=== PATIENT | female | born 1955 | race Caucasian/White ===

== ENCOUNTER 2016-12-12 10:09 | Day surgery (SDC) | payer OTHER ==
[~2016-12-12 10:09] MED LIST: BACITRACIN 50,000 UNITS/10 ML SYR IRR ONE; BUPIVACAINE 0.5% 30 ML SDV ONE; LIDOCAINE 2% 5 ML SDV ONE; ROPIVACAINE HCL 20 MG/10 ML INJ EP ONE; ceFAZolin 2 GM/DEXTROSE 100 ML IV ONE
[2016-12-12] MEDS ORDERED: LIDOCAINE 1% 5 ML SDV ONE (10:16)
[2016-12-12] MEDS ORDERED: CEFAZOLIN 2 GM/DEXTROSE/100 ML BAG IV ONE (10:17)
[2016-12-12] MEDS ORDERED: LR 1,000 ML IV ONE (10:58)
[2016-12-12] MEDS ORDERED: PROPOFOL/EMULSION 500 MG/50 ML BOTTLE IV ONE (11:47)
[2016-12-12] MEDS ORDERED: fentaNYL 100 MCG/2 ML INJ ONE (11:47)
[2016-12-12] MEDS ORDERED: MIDAZOLAM 2 MG/2 ML VIAL ONE (11:54)
[2016-12-12] MEDS ORDERED: LIDOCAINE 2% 100 MG/5 ML SYR IVP ONE (12:00)
[2016-12-12] MEDS ORDERED: ONDANSETRON 4 MG/2 ML VIAL IVP PRN (14:13)
[2016-12-12] MEDS ORDERED: KETOROLAC 15 MG/1 ML SDV ONE (14:13)
[2016-12-12] MEDS ORDERED: ONDANSETRON DISINTEGRATING 4 MG TAB PO PRN (14:13)
[2016-12-12] MEDS ORDERED: PROMETHAZINE HCL 25 MG/ML INJ IVP PRN (14:14)
[2016-12-12] MEDS ORDERED: PROMETHAZINE HCL 25 MG TAB PO PRN (14:14)
[2016-12-12] MEDS ORDERED: KETOROLAC 15 MG/1 ML SDV IVP ONE (14:30)
--- NOTE | 2016-12-12 16:32 | GOP ---
DATE OF OPERATION: SURGEON: Krista Ponce DPM ANESTHESIA: MAC light general. ANESTHESIOLOGIST: Chris Grayson MD. PREOPERATIVE DIAGNOSIS: Tailor bunion, 5th metatarsal, left foot. POSTOPERATIVE DIAGNOSIS: Tailor bunion, 5th metatarsal, left foot. PROCEDURE PERFORMED: Osteotomy 5th metatarsal, with screw and plate fixation. FINDINGS: INDICATIONS: Pain in the left foot. Unresponsive to multiple conservative treatment efforts, deformity. The patient wears prescription orthotics and wide shoes with support. Despite, she experiences significant pain, and at this time, would like to proceed with surgery. I have done several procedures on her foot for hallux valgus left foot, hammertoes left, neuroma left, bunion/ hallux valgus right and tailor bunion right foot, and she has had uneventful postoperative recoveries. She At this time, she elects to proceed with surgery on the left foot to address painful tailor bunion. DESCRIPTION OF PROCEDURE: The patient was brought into the operating room and placed on the operating table in the supine position. Intravenous sedation administered by the anesthesiologist, a light general. A posterior tibial and peripheral nerve block was obtained, utilizing a total of 6 cc of 2% Xylocaine, 6 cc of 0.5% Marcaine plain and 6 cc of 0.2% ropivacaine. The lower extremity was prepped and draped in the usual sterile manner. After the limb was elevated , it was exsanguinated with an Esmarch bandage. Webril padding was utilized under the ankle cuff. Attention was directed towards the dorsolateral aspect of the 5th metatarsophalangeal joint where a 4 cm linear incision was created. The incision was carefully deepened with care of neurovascular structures and I clamped and cauterized bleeders. The incision deepened through the periosteum and capsule exposing the 5th metatarsal head and hypertrophied lateral eminence. A small portion of the lateral condtke was resected, and then utilizing a K-wire as an axis guide, and a Willy osteotomy guide, C-arm to verify alignment and positioning. Osteotomy was created with saggital saw Short dorsal arm and then a plantar osteotomy extending from dorsal distal to plantar proximal. Capital fragment was shifted over medially. Temporary position obtained and secured with a bone clamp and then a 45 K-wire. Prior to performing the osteotomy, a drill hole had been created in the metatarsal head. Plate attached and then rotated. Osteotomy was then created. Then, plate was rotated proximally and secured with 2 more locking screws. All screws were 2.5 mm locking , measuring 10 mm in length. C-arm utilized to verify alignment and positioning which was noted to be excellent. Temporary fixation removed. Remaining lateral metaphyseal shelf resected with a sagittal saw. The foot was copiously irrigated with bacitracin irrigation solution. Capsule and periosteal tissue closed with 3-0 Vicryl. Ankle tourniquet released, and a normal hyperemic response noted to all digits. Subcutaneous closure achieved with 4-0 Monocryl, and the skin was closed with 4-0 Prolene in a horizontal mattress and simple interrupted suture fashion. Dressings including Xeroform, 4x4s, fluffs, Jaja reinforced with tape and an Quoc bandage. The patient tolerated the procedure and anesthesia well, and left the operating room, vital signs stable and vascular status intact to all digits. There were no intraoperative complications. Estimated blood loss less than 5 cc. No additional injectables. No specimens sent to pathology. In postoperative recovery, she was doing well. Her [facility] will be providing her transportation home. Prognosis good. /[id number]/MODL MTDD
== END 2016-12-12 15:00 | disposition home or self-care (01) ==
LOC: FSGY 10:09
PROVIDERS: ATTEND Podiatrist
PROC: 0QBP0ZZ Excision of Left Metatarsal, Open Approach (ICD-10-PCS; principal; 2016-12-12 12:02)
DX: M21.622 Bunionette of left foot (principal); M20.60 Acquired deformities of toe(s), unspecified, unspecified foot
CPT/HCPCS: 28110; 73620; C1769; C1713; J0690; J1885; J2001; J2250; J2704; J2795; J3010

== ENCOUNTER 2017-05-06 10:21 | Emergency (ER) | payer OTHER ==
[2017-05-06 10:26] VITALS: TEMP 98.2
--- NOTE | 2017-05-06 10:27 | CPEKG ---
Heart Rate: 73 RR Interval: 822 P-R Interval: 184 QRSD Interval: 100 QT Interval: 404 QTC Interval: 446 P Mullens: 50 QRS Mullens: 44 T Wave Mullens: 75 EKG Severity - BORDERLINE ECG - EKG Impression: SINUS RHYTHM EKG Impression: PROBABLE LEFT ATRIAL ABNORMALITY EKG Impression: BORDERLINE T ABNORMALITIES, ANT-LAT LEADS Electronically Signed By: Isatu Anand 06-May-2017 15:31:28
[2017-05-06] MEDS ORDERED: IOPAMIDOL (ISOVUE 370) 100 ML BTL IV ONE (10:28)
[2017-05-06 10:38] LABS: % IMMATURE GRANULYOCYTES 0.1 % (0.0-1.1); ABSOLUTE IMMATURE GRANULOCYTES 0.01 10^3/uL (0.00-0.10); ADD DIFF? NO; ADD MORPH? NO; ADD SCAN? NO; ATYPICAL LYMPHOCYTE FLAG 0 (0-99); FRAGMENT RBC FLAG 0 (0-99); HEMATOCRIT 43.9 % (38.0-47.0); HEMOGLOBIN 14.8 g/dL (12.6-16.3); LEFT SHIFT FLG 0 (0-99); LIPEMIA HEMOLYSIS FLAG 80 (0-99); MEAN CELL HEMOGLOBIN 29.1 pg (27.9-34.1); MEAN CELL HEMOGLOBIN CONCENTR. 33.7 g/dL (32.4-36.7); MEAN CELL VOLUME 86.4 fL (81.5-99.8); MEAN PLATELET VOLUME 10.1 fL (8.7-11.7); PLATELET CLUMPS FLAG 0 (0-99); PLATELET COUNT 267 10^3/uL (150-400); RED BLOOD CELL COUNT 5.08 10^6/uL (4.18-5.33); RED CELL DISTRIBUTION WIDTH 12.4 % (11.5-15.2)
[2017-05-06 10:47] LABS: INR 1.25 (0.83-1.16); PROTIME(PATIENT) 15.7 SEC (12.0-15.0)
[2017-05-06 10:48] LABS: APTT 53.5 SEC (23.0-38.0)
[2017-05-06] MEDS ORDERED: ONDANSETRON 4 MG/2 ML VIAL IVP ONE (10:56)
[2017-05-06 11:04] LABS: CALCIUM 9.9 mg/dL (8.5-10.4); CARBON DIOXIDE 17 mEq/l (22-31); CHLORIDE 107 mEq/L (97-110); CREATININE 0.9 mg/dL (0.6-1.0); GLOMERULAR FILTRATION RATE > 60; GLUCOSE 101 mg/dL (70-100); SODIUM 141 mEq/L (134-144)
[2017-05-06 11:15] LABS: TROPONIN I < 0.012 ng/mL (0-0.034)
[2017-05-06 11:50] LABS: ANION GAP 17 mEq/L (8-16); POTASSIUM 4.1 mEq/L (3.5-5.2)
[2017-05-06] MEDS ORDERED: KETOROLAC 15 MG/1 ML SDV IVP ONE (11:55)
[2017-05-06] MEDS ORDERED: GADOBUTROL 10 ML VIAL IVP ONE (12:44)
--- NOTE | 2017-05-06 14:27 | EDPHY ---
H & P Stated Complaint: chest & head pain sudden onset Time Seen by Provider: 05/06/17 10:22 HPI/ROS: CHIEF COMPLAINT: Severe headache and chest pain HISTORY OF PRESENT ILLNESS: This is a 62 year old female with a history of MS, atrial fibrillation (on pradaxa), and RAD. 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 There was no prior exertion, no trauma. The chest pain/ burning has abated slightly, but the headache continues. It is bifrontal, worse than any headache she has experienced. No recent fever. No trauma. She denies confusion, visual changes, numbness, weakness. REVIEW OF SYSTEMS: A ten point review of systems was performed and is negative with the exception of the items mentioned in the HPI. - Personal History Current Tetanus/Diphtheria Vaccine: Unsure Current Tetanus Diphtheria and Acellular Pertussis (TDAP): Unsure - Medical/Surgical History Hx Asthma: Yes Hx Chronic Respiratory Disease: No Hx Diabetes: Yes Hx Cardiac Disease: No Hx Renal Disease: No Hx Cirrhosis: No Hx Alcoholism: No Hx HIV/AIDS: No Hx Splenectomy or Spleen Trauma: No Other PMH: MS. Atrial fibrillation. asthma - Social History Smoking Status: Never smoked Additional Social History: She is . She works as a respiratory therapist at [employer]. - Physical Exam Exam: General Appearance: Alert. Vital signs reviewed. Blood pressure 144/79. She appears uncomfortable. Head: Normocephalic, atraumatic. Eyes: Pupils equal and round, no conjunctival injection, no discharge. Anicteric. ENT, Mouth: Mucous membranes are moist, no oropharyngeal erythema or edema. Neck: No lymphadenopathy, supple. Respiratory: Lungs are clear to auscultation; no wheezes, rales, or rhonchi. Cardiovascular: Regular rate and rhythm; no murmur, rub, or gallop. Gastrointestinal: Abdomen is soft and nontender, no masses or organomegaly, bowel sounds normal. Skin: Warm and dry, no rashes on exposed skin, normal color. Back: Nontender to palpation over the thoracolumbar spine. Extremities: No lower extremity edema, no calf tenderness or swelling. Neurological: Alert and oriented. Moving all four extremities easily and equally. Cranial nerves II through XII are examined and are intact (visual acuity not tested). Strength is 5 over 5 bilaterally with testing of all major motor groups. Sensation is intact to light touch over all 4 extremities. Speech is fluent. Psychiatric: Normal affect. Constitutional: Initial Vital Signs Temperature (C) 36.8 C 05/06/17 10:23 Heart Rate 70 05/06/17 10:23 Respiratory Rate 16 05/06/17 10:23 Blood Pressure 144/79 H 05/06/17 10:23 O2 Sat (%) 93 05/06/17 10:23 O2 Delivery Mode Room Air Allergies/Adverse Reactions: No Known Allergies Allergy (Verified 01/17/14 14:36) Home Medications: Medication Instructions Recorded SYNTHROID DAILY06 07/16/10 Simvastatin [Zocor 20 mg (RX)] 20 mg PO HS 01/24/12 Flecainide Acetate BID 11/30/16 Lexapro DAILY06 11/30/16 Omeprazole DAILY06 11/30/16 Pradaxa BID 11/30/16 Probiotic DAILY 02/12/17 Medical Decision Making ED Course/Re-evaluation: Acute onset of severe headache and chest pain in 62 year old female taking pradaxa for atrial fibrillation. My initial concerns were for intracranial hemorrhage and aortic dissection. Head Ct and chest CTA performed shortly after her arrival in ED. No intracranial hemorrhage noted on CT, no abnormalities on chest CTA. Brain MRI with and without gadolinium performed and negative for acute findings. Some slight increase in MS lesions compared to 2014. No evidence of hemorrhage, including SAH, and no evidence of ischemia. No mass or tumor suggestive of malignancy. She received morphine 4 mg IV and toradol 15 mg IV with some rlief of head pain. The chest discomfort also subsided. However, the headache did not entirely resolve. Neurologic exam remained normal. I spoke with neurologist admissions dean, Dr Blair (her neurologist is Dr. Lakhani), who feels that SAH has been effectively ruled out with above work-up. He does not recommend further ED evaluation of headache. Ms. Smith was offered admission for further treatment of her headache and further investigation as warranted, but she would like to return home and feels comfortable doing so. She understand the risks of leaving and the benefits of hospitalization, she is capable of making her own medical decisions. I am confident that she will return should she develop new or worsening symptoms. She will FU with PCP and neurology. BP at DC 124/69. - Data Points Laboratory Results: Laboratory Results 05/06/17 10:25 05/06/17 10:25 Medications Given: Discontinued Medications Ketorolac Tromethamine (Toradol) 15 mg IVP EDNOW ONE Stop: 05/06/17 11:56 Last Admin: 05/06/17 12:05 Dose: 15 mg Morphine Sulfate (Morphine) 4 mg IVP EDNOW ONE Stop: 05/06/17 10:57 Last Admin: 05/06/17 11:04 Dose: 2 mg Ondansetron HCl (Zofran) 4 mg IVP EDNOW ONE Stop: 05/06/17 10:57 Last Admin: 05/06/17 12:02 Dose: Not Given Departure - Departure Disposition: Home, Routine, Self-Care Clinical Impression: Headache Qualifiers: Headache type: unspecified Headache chronicity pattern: acute headache Intractability: not intractable Qualified Code(s): R51 - Headache Chest pain Qualifiers: Chest pain type: other chest pain Qualified Code(s): R07.89 - Other chest pain ; R07.8 - Other chest pain Condition: Good Instructions: Chest Pain (ED), Acute Headache (ED) Additional Instructions: It is fine for you to take Tylenol, 650 mg every 4 hours, for your headache. It is okay if you want to take 1 of the Vicodin that you have at home also. If you have worsening of headache, any new neurologic symptoms such as confusion , visual changes, difficulty speaking, numbness, or weakness--you should be re- evaluated immediately. If your chest pain changes in any way--if it is worsened by exertion, if it becomes more localized, if you feel short of breath, any new or concerning symptoms--you should be re-evaluated immediately. If you continue with headache you should follow up with Dr. Lakhani. Please also follow up with your primary care doctor. Referrals: Arlette Dasilva MD [Primary Care Provider] - As per Instructions Ace Lakhani DO [Medical Doctor] - As per Instructions
[2017-05-06 14:46] VITALS: BP 124/69; PULSE 51; RESP 14; O2SAT 94
== END 2017-05-06 14:45 | disposition home or self-care (01) ==
DX: R07.89 Other chest pain (principal); R51 Headache; J45.909 Unspecified asthma, uncomplicated; E11.9 Type 2 diabetes mellitus without complications
CPT/HCPCS: 82947-QW; 96374; A9585; J1885; J2405; Q9967

== ENCOUNTER → 2017-05-22 | Outpatient (CLI) | payer OTHER ==
[~2017-05-22] MED LIST changes: -BACITRACIN 50,000 UNITS/10 ML SYR IRR ONE; -BUPIVACAINE 0.5% 30 ML SDV ONE; +GADOBUTROL 10 ML VIAL IVP ONE; -LIDOCAINE 2% 5 ML SDV ONE; -ROPIVACAINE HCL 20 MG/10 ML INJ EP ONE; -ceFAZolin 2 GM/DEXTROSE 100 ML IV ONE
== END ==
LOC: FIMAGING 06:49
PROVIDERS: ATTEND Physician Assistant Medical
DX: G35 Multiple sclerosis (principal); G95.89 Other specified diseases of spinal cord; M50.321 Other cervical disc degeneration at C4-C5 level; S13.150A Subluxation of C4/C5 cervical vertebrae, initial encounter; S13.160A Subluxation of C5/C6 cervical vertebrae, initial encounter
CPT/HCPCS: A9585

== ENCOUNTER → 2017-05-22 | Outpatient (CLI) | payer OTHER | LOC: FIMAGING 06:44 | PROVIDERS: ATTEND Internal Medicine | DX: Z12.31 Encounter for screening mammogram for malignant neoplasm of breast (principal); Z80.3 Family history of malignant neoplasm of breast | CPT/HCPCS: G0202 ==

== ENCOUNTER 2018-03-19 17:44 | Emergency (ER) | payer OTHER ==
[2018-03-19 18:18] LABS: PLATELET COUNT 260 10^3/uL (150-400)
--- NOTE | 2018-03-19 18:20 | EDPHY ---
HPI/HX/ROS/PE/MDM Narrative: CHIEF COMPLAINT: Abdominal pain, distended abdomen HPI: The patient is an anticoagulated 63 y/o female with a history of cholecystectomy, atrial fibrillation, and multiple sclerosis complaining of several weeks of abdominal pain and distention. A few weeks ago, she noticed back pain, abdominal pain, and groin pain. She consulted her PCP who confirmed she did not have a UTI. The pain subsided a day later. A few days after that her pain returned. She had an intravaginal ultrasound at her head cleaning porter which did not indicate any gynecological findings but showed some abnormalities in her small intestines. Her PCP was unable to see her until April and her head bander and liner operator could see her Saturday at the earliest. Her distention and discomfort increased today, prompting her visit. She reports having a fever one day. She has associated alternating diarrhea and constipation. She denies blood in her stool, urinary complaints, or other associated symptoms. REVIEW OF SYSTEMS: Aside from elements discussed in the HPI, a comprehensive 10-point review of systems was reviewed and is negative. 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 ENT:Eyes are normal to inspection. ENT inspection normal. Neck: Normal inspection. Full range of motion. Respiratory:No respiratory distress. Breath sounds normal bilaterally. Cardiovascular: Regular rate and rhythm. Strong peripheral pulses. Normal cap refill. Abdomen: Moderate to severe lower left quadrant tenderness. There are no peritoneal signs. There are normal bowel sounds. Back: Normal to inspection. No tenderness to palpation. Skin: Normal color. No rash. Warm and dry. Extremities: Normal appearance. Full range of motion. Neuro: Oriented x3. Normal motor function. Normal sensory function. ED Course: The patient presents with lower abdominal distention and abdominal discomfort. She has had her symptoms investigated as an outpatient through urinalysis and transvaginal ultrasound. Her urinalysis was negative and her ultrasound indicated possible small bowel abnormalities. On exam, she has moderate to severe tenderness in lower left quadrant. Plan for CT, CBC, basic metabolic panel, and urinalysis. 8:00 PM- Her workup has been negative. I reassessed the patient and informed her of the results of her workup. I feel she can safely leave. She agrees to this course of action. MDM: This patient presents with LLQ of unknown etiology. Labs including UA are normal and CTAP is negative for diverticulitis or other process. The etiology of her symptoms is unclear but there is no evidence of UTI, pyelonephritis, appendicitis, diverticulitis or splenic infarct. - Data Points Imaging Results: Imaging Impressions Abdomen CT 03/19/18 19:00 Impression: 1. No acute abdominal or pelvic abnormality. 2. See above report for additional findings. Results called and discussed with Nir Trevino MD on 03/19/2018 at 19:45. Laboratory Results: Laboratory Results 03/19/18 18:10 03/19/18 18:10 03/19/18 03/19/18 03/19/18 18:31 18:10 18:10 WBC 8.02 10^3/uL 10^3/uL (3.80-9.50) RBC 4.70 10^6/uL 10^6/uL (4.18-5.33) Hgb 13.9 g/dL g/dL (12.6-16.3) Hct 41.3 % % (38.0-47.0) MCV 87.9 fL fL (81.5-99.8) MCH 29.6 pg pg (27.9-34.1) MCHC 33.7 g/dL g/dL (32.4-36.7) RDW 13.8 % % (11.5-15.2) Plt Count 260 10^3/uL 10^3/uL (150-400) MPV 9.9 fL fL (8.7-11.7) Neut % (Auto) 53.7 % % (39.3-74.2) Lymph % (Auto) 33.9 % % (15.0-45.0) [place] % (Auto) 8.2 % % (4.5-13.0) Eos % (Auto) 3.4 % % (0.6-7.6) Baso % (Auto) 0.6 % % (0.3-1.7) Nucleat RBC Rel Count 0.0 % % (0.0-0.2) Absolute Neuts (auto) 4.30 10^3/uL 10^3/uL (1.70-6.50) Absolute Lymphs (auto) 2.72 10^3/uL 10^3/uL (1.00-3.00) Absolute Monos (auto) 0.66 10^3/uL 10^3/uL (0.30-0.80) Absolute Eos (auto) 0.27 10^3/uL 10^3/uL (0.03-0.40) Absolute Basos (auto) 0.05 10^3/uL 10^3/uL (0.02-0.10) Absolute Nucleated RBC 0.00 10^3/uL 10^3/uL (0-0.01) Immature Gran % 0.2 % % (0.0-1.1) Immature Gran # 0.02 10^3/uL 10^3/uL (0.00-0.10) Sodium 140 mEq/L mEq/L (135-145) Potassium 3.9 mEq/L mEq/L (3.3-5.0) Chloride 107 mEq/L mEq/L (97-110) Carbon Dioxide 21 mEq/l L mEq/l (22-31) Anion Gap 12 mEq/L mEq/L (8-16) BUN 21 mg/dL mg/dL (7-23) Creatinine 0.8 mg/dL mg/dL (0.6-1.0) Estimated GFR > 60 Glucose 111 mg/dL H mg/dL (70-100) Calcium 9.3 mg/dL mg/dL (8.5-10.4) Urine Color YELLOW Urine Appearance CLEAR Urine pH 5.0 (5.0-7.5) Ur Specific [place] 1.014 (1.002-1.030) Urine Protein NEGATIVE (NEGATIVE) Urine Ketones NEGATIVE (NEGATIVE) Urine Blood NEGATIVE (NEGATIVE) Urine Nitrate NEGATIVE (NEGATIVE) Urine Bilirubin NEGATIVE (NEGATIVE) Urine Urobilinogen NEGATIVE EU EU (0.2-1.0) Ur Leukocyte Esterase NEGATIVE (NEGATIVE) Urine Glucose NEGATIVE (NEGATIVE) General Time Seen by Provider: 03/19/18 18:02 Initial Vital Signs: Initial Vital Signs Temperature (C) 36.4 C 03/19/18 17:53 Heart Rate 69 03/19/18 17:53 Respiratory Rate 18 03/19/18 17:53 Blood Pressure 144/75 H 03/19/18 17:53 O2 Sat (%) 94 03/19/18 17:53 O2 Delivery Mode Room Air Allergies/Adverse Reactions: No Known Allergies Allergy (Verified 03/19/18 17:52) Home Medications: Medication Instructions Recorded SYNTHROID DAILY06 07/16/10 Simvastatin [Zocor 20 mg (RX)] 20 mg PO HS 01/24/12 Flecainide Acetate BID 11/30/16 Lexapro DAILY06 11/30/16 Omeprazole DAILY06 11/30/16 Pradaxa BID 11/30/16 Probiotic DAILY 02/12/17 Departure - Departure Disposition: Home, Routine, Self-Care Clinical Impression: Abdominal pain Condition: Good Instructions: Abdominal Pain (ED) Additional Instructions: 1. Go to your appointment with your head bander and liner operator as planned on Saturday. 2. Return to the emergency department for blood in your stool, uncontrollable pain, or any other worsening of condition. Referrals: Arlette Dasilva MD [Primary Care Provider] - As per Instructions Report Scribed for: Nir Trevino Report Scribed by: Rosalba Palacios Date of Report: 03/19/18 Time of Report: 18:26 Physician Review and Approval Statement: Portions of this note were transcribed by an ED scribe. I personally performed the history, physical exam, and medical decision making; and confirm the accuracy of the information in the transcribed note.
[2018-03-19] MEDS ORDERED: IOPAMIDOL (ISOVUE-300) 100 ML BTL ONE (19:02)
[2018-03-19 19:44] VITALS: BP 126/64
== END 2018-03-19 20:21 | disposition home or self-care (01) ==
DX: R10.32 Left lower quadrant pain (principal); J45.909 Unspecified asthma, uncomplicated
CPT/HCPCS: Q9967

== ENCOUNTER → 2018-06-30 | Outpatient (CLI) | payer OTHER | LOC: FIMAGING 09:05 | PROVIDERS: ATTEND Internal Medicine | DX: Z12.31 Encounter for screening mammogram for malignant neoplasm of breast (principal); Z80.3 Family history of malignant neoplasm of breast ==

== ENCOUNTER 2019-01-08 14:54 | Day surgery (SDC) | payer OTHER ==
[~2019-01-08 14:54] MED LIST changes: -GADOBUTROL 10 ML VIAL IVP ONE; +LR 1,000 ML IV ONE
[2019-01-08] MEDS ORDERED: LIDOCAINE 1% 300 MG/30 ML SDV ONE (15:26)
[2019-01-08] MEDS ORDERED: BACITRACIN 50,000 UNITS/10 ML SYR IRR ONE (15:26)
[2019-01-08] MEDS ORDERED: ROPIVACAINE HCL 150 MG/30 ML INJ ONE (15:26)
[2019-01-08] MEDS ORDERED: BUPIVACAINE 0.5% 30 ML SDV ONE (15:26)
--- NOTE | 2019-01-08 16:28 | PDANEPAE ---
ANE History of Present Illness L foot hardware removal ANE Past Medical History - Cardiovascular History Hx Hypertension: No Hx Arrhythmias: Yes Hx Chest Pain: No Hx Coronary Artery / Peripheral Vascular Disease: No Hx CHF / Valvular Disease: No Hx Palpitations: No Cardiovascular History Comment: A-FIB - Pulmonary History Hx COPD: No Hx Asthma/Reactive Airway Disease: Yes Hx Recent Upper Respiratory Infection: Yes Hx Oxygen in Use at Home: No Hx Sleep Apnea: No Sleep Apnea Screening Result - Last Documented: Negative Pulmonary History Comment: STREP 12/2016. EXERCISE INDUCED NO INHALER USEAGE FOR YEARS - Neurologic History Hx Cerebrovascular Accident: No Hx Seizures: No - Endocrine History Hx Diabetes: No Endocrine History Comment: HYPOTHYROID - Renal History Hx Renal Disorders: No - Liver History Hx Hepatic Disorders: Yes Hepatic History Comment: FANTA - Neurological & Psychiatric Hx Hx Neurological and Psychiatric Disorders: Yes Neurological / Psychiatric History Comment: MULTIPLE SCLEROSIS DX 1994. ANXIETY - Cancer History Hx Cancer: No - Congenital Disorder History Hx Congenital Disorders: No - GI History Hx Gastrointestinal Disorders: Yes Gastrointestinal History Comment: REFLUX - Other Health History Other Health History: LT LITTLE TOE OPEN WOUND 02/01/2017 POST SURGERY 12/12/2016 WAS PREVIOUSLY ON ANTIBIOTIC FOR STREP SO NOW NEW ANTIBIOTICS GIVEN. WOUND NOW CLOSED. HX - TRIGEMINAL NEUROPATHY - Chronic Pain History Chronic Pain: No - Surgical History Prior Surgeries: LT FOOT OSTEOTOMY 5TH METATARSAL 12/12/2016. LT FOOT HAMMERTOE REPAIR 09/2010. LT FOOT BUNION AND MIR NEUROMA. ALISE KNEE ARTHROSCOPY. LT S &O. OPEN FANTA. TONSILLECTOMY ANE Review of Systems Review of Systems: - Exercise capacity Exercise capacity: >=4 METS ANE Patient History - Allergies Allergies/Adverse Reactions: No Known Allergies Allergy (Verified 03/19/18 17:52) - Home Medications Home medications: home medication list seen and reviewed Home Medications: SYNTHROID 125 mcg PO DAILY06 07/16/10 [Last Taken 01/08/19 08:00] Simvastatin [Zocor 20 mg (RX)] 20 mg PO HS 01/24/12 [Last Taken 01/06/19] Flecainide Acetate 100 mg PO BID 11/30/16 [Last Taken 01/08/19 09:00] Lexapro 10 mg PO DAILY06 11/30/16 [Last Taken 01/07/19 05:00] Omeprazole 20 mg PO DAILY06 11/30/16 [Last Taken 01/07/19 09:00] Pradaxa 150 mg PO BID 11/30/16 [Last Taken 01/06/19 05:00] Probiotic 150 mg PO DAILY 02/12/17 [Last Taken 01/06/19] - NPO status NPO Status: no food or drink >8 hours NPO Since - Liquids (Date): 01/08/19 NPO Since - Liquids (Time): 12:00 NPO Since - Solids (Date): 01/08/19 NPO Since - Solids (Time): 08:00 - Smoking Hx Smoking Status: Never smoked - Alcohol Use Alcohol Use: None - Family Anes Hx Family Anes Hx: none Family Hx Anesthesia Complications: NEG ANE Labs/Vital Signs - Vital Signs Blood Pressure: 156/73 Heart Rate: 56 Respiratory Rate: 14 O2 Sat (%): 94 Height: 167.64 cm Weight: 67.132 kg ANE Physical Exam - Airway Neck exam: FROM Mallampati Score: Class 2 Mouth exam: normal dental/mouth exam - Pulmonary Pulmonary: no respiratory distress - Cardiovascular Cardiovascular: regular rate and rhythym - ASA Status ASA Status: III ANE Anesthesia Plan Anesthesia Plan: GA with mask Total IV Anesthesia: Yes
--- NOTE | 2019-01-08 16:45 | PDHPUP ---
History & Physical Update H&P update statement: This history and physical update is based on an assessment of the patient which was completed after admission or registration (within 24 hours), but prior to the surgery/procedure. no change in history H&P update: H&P reviewed & patient examined, no change in patient's condition since H&P completed H&P changes: no changes. good health
[2019-01-08] MEDS ORDERED: fentaNYL 100 MCG/2 ML INJ ONE (17:11)
[2019-01-08] MEDS ORDERED: LIDOCAINE 2% 100 MG/5 ML SYR ONE (17:11)
[2019-01-08] MEDS ORDERED: PROPOFOL 200 MG/20 ML VIAL ONE ×2 (17:11→17:27)
[2019-01-08] MEDS ORDERED: MEPERIDINE 25 MG/0.5 ML AMP IVP PRN (17:51)
[2019-01-08] MEDS ORDERED: ACETAMINOPHEN 500 MG TAB PO PRN (17:51)
[2019-01-08] MEDS ORDERED: DEXAMETHASONE 4 MG/ML VIAL IVP PRN (17:51)
[2019-01-08] MEDS ORDERED: PROMETHAZINE HCL 25 MG/ML INJ IVP PRN (17:51)
[2019-01-08] MEDS ORDERED: oxyCODONE IR 5 MG TAB PO PRN (17:51)
[2019-01-08] MEDS ORDERED: fentaNYL 100 MCG/2 ML INJ IVP PRN (17:51)
[2019-01-08] MEDS ORDERED: LABETALOL HCL 5 MG/ML 20 ML MDV IVP PRN (17:51)
[2019-01-08] MEDS ORDERED: PHENYLEPHRINE HCL 100 MCG/ML SYR IVP PRN (17:51)
[2019-01-08] MEDS ORDERED: ALBUTEROL 3 ML DEYVIAL IH PRN (17:51)
[2019-01-08] MEDS ORDERED: METOCLOPRAMIDE 10 MG/2 ML VIAL IVP PRN (17:51)
[2019-01-08] MEDS ORDERED: ONDANSETRON 4 MG/2 ML VIAL IVP PRN (17:51)
[2019-01-08] MEDS ORDERED: NALOXONE HCL 0.4 MG/ML INJ IVP PRN (17:51)
[2019-01-08] MEDS ORDERED: LR 500 ML IV PRN (17:51)
[2019-01-08] MEDS ORDERED: CEFAZOLIN 2 GM/DEXTROSE/100 ML BAG IV ONE (18:24)
[2019-01-08 18:26] VITALS: BP 139/72
[2019-01-08] MEDS ORDERED: ceFAZolin 2 GM/DEXTROSE 100 ML IV ONE (18:38)
--- NOTE | 2019-01-08 19:33 | POSTOPPROG ---
Post Op Note Date of Operation: 01/08/19 Surgeon: Krista Ponce Manager Star: none Anesthesiologist: Brant Sales MD Pre-op Diagnosis: deep internal fixation left foot, possible infection Post-op Diagnosis: same Indication: pain, redness Procedure: Incision drainage, removal of deep internal fixation left foot plate , 2 scr Inf/Abcess present in the surg proc area at time of surgery?: No Depth: Deep Incisional (Fascial) EBL: Minimal Complications: none Specimen(s): none
--- NOTE | 2019-01-09 02:16 | GOP ---
[f rep st] OPERATIVE REPORT DATE OF OPERATION: 01/08/2019 SURGEON: Krista Ponce DPM ANESTHESIA: Light MAC. ANESTHESIOLOGIST: Brant Sales MD. PREOPERATIVE DIAGNOSIS: Irritation, deep internal fixation, possible infection, left foot. POSTOPERATIVE DIAGNOSIS: Irritation, deep internal fixation, possible infection, left foot. PROCEDURE PERFORMED: 1. Incision and incision and drainage, left foot. 2. Removal of deep internal fixation, plate and 2 screws, left foot. FINDINGS: INDICATIONS: Approximately 11 days ago, patient underwent procedure in the office under local anesth etic to remove loose screw protruding. Procedure was performed uneventfully. Received a phone call yesterday on January 07, the patient complaining of significant pain and swelling in the left foot, w ound not looking good, possibly infected. She had completed three 12-hour shifts. She is a respirat ory nurse. She sent digital photos revealing local erythema, edema, and what appeared to be a wound dehiscence. After reviewing photo and her issues with pain, recommended incision and drainage with r emoval of the remaining hardware as soon as possible. Patient elected to proceed with the surgery. A preop holding consent form signed. As a note, when the screw was removed in the office, the plate was also noted to be quite prominent. However, I was not prepared to remove the plate in the office because of her history of taking Pradaxa as well as the large incision that would be needed and not h aving any cauterization available. Therefore, it was recommended that we do the procedure to remove the remaining hardware in the operating room at [facility]. Patient's provid ed her with transportation. DESCRIPTION OF PROCEDURE: Patient was brought into the operating room, placed on the operating table in the supine position. Intravenous sedation administered by the anesthesiologist. A peripheral ne rve block was obtained utilizing 8 cc of 0.5% Marcaine plain and 6 cc of 1% lidocaine plain. The low er extremity was prepped and draped in the usual sterile manner. After the limb was elevated, it was exsanguinated with an Esmarch bandage, and the ankle tourniquet inflated to 220 mmHg. Webril paddin g had been applied under the ankle cuff. Incision was created along the previous incision line where sutures had been already removed just earlier that afternoon in the office, and then the incision wa s extended distally. Incision was carefully deepened with care of neurovascular structures, clamp an d cauterize bleeders. Hardware on the lateral plate was prominent, 2 screws removed, and plate was r emoved without any complication. Wound was copiously irrigated with bacitracin irrigation solution. When the deeper incision was created, site was swabbed and culture sent for aerobic and anaerobic cu ltures. The wound was copiously irrigated with bacitracin irrigation solution. Periosteal closure a chieved with 3-0 Vicryl, the subcutaneous closure was 4-0 Monocryl, and the skin was closed with 4-0 Prolene in a horizontal mattress and simple interrupted suture manner. Dressings included Xeroform, 4 x 4's, fluffs, Jaja reinforced with tape and an Quoc bandage. Prior to wound closure, the ankle to urniquet was released, and a normal hyperemic response was noted to all digits. There was no excessi ve bleeding. Bleeding controlled. Patient tolerated the procedure and anesthesia well and left the operating room with vital signs stable and vascular status intact to all digits, left foot. Her husb and will be providing her transportation home. Prognosis is good. /[id number]/MODL
== END 2019-01-08 18:55 | disposition home or self-care (01) ==
LOC: FSGY 14:54
PROVIDERS: ATTEND Podiatrist
PROC: 0QPP04Z Removal of Internal Fixation Device from Left Metatarsal, Open Approach (ICD-10-PCS; principal; 2019-01-08 16:30)
DX: T84.84XA Pain due to internal orthopedic prosthetic devices, implants and grafts, initial encounter (principal); I48.0 Paroxysmal atrial fibrillation; E78.5 Hyperlipidemia, unspecified; I34.0 Nonrheumatic mitral (valve) insufficiency; G35 Multiple sclerosis; J45.909 Unspecified asthma, uncomplicated; G50.0 Trigeminal neuralgia; I25.10 Atherosclerotic heart disease of native coronary artery without angina pectoris; E03.9 Hypothyroidism, unspecified
CPT/HCPCS: J0690; J2001; J2704; J2795; J3010